=== PATIENT | male | born 1990 | race Two or more races ===

== ENCOUNTER 2024-07-15 11:00 | Inpatient (IN) | payer OTHER ==
[~2024-07-15] VITALS: Ht 175.3 cm; Wt 66.7 kg
[2024-07-15 12:29] VITALS: BP 115/75
[2024-07-21] MEDS ORDERED: METRONIDAZOLE/SODIUM CHLORIDE 500 MG/100 ML PIGGYBACK IV ONE ×2 (09:58→16:22)
[2024-07-21] MEDS ORDERED: CEFTRIAXONE SODIUM 1,000 MG VIAL ONE ×2 (09:58→10:08)
[2024-07-21] MEDS ORDERED: SUGAMMADEX SODIUM 200 MG/2 ML VIAL IV ONE (13:36)
[2024-07-21] MEDS ORDERED: 0.9 % SODIUM CHLORIDE 1,000 ML IV SCH (14:30)
[2024-07-21] MEDS ORDERED: OxyCODONE HCL 5 MG TABLET (ROXICODONE) PO PRN (14:30)
[2024-07-21] MEDS ORDERED: ONDANSETRON HCL 2 MG/ML VIAL IV PRN (14:30)
[2024-07-21] MEDS ORDERED: MORPHINE SULFATE 4 MG/ML CARTRIDGE IV PRN (14:30)
[2024-07-21] MEDS ORDERED: DEXTROSE 50 % IN WATER 0.5 G/ML DISP.SYRIN IV PRN (14:30)
[2024-07-21] MEDS ORDERED: MORPHINE SULFATE 4 MG/ML VIAL IV ONE ×2 (15:15→16:20)
[2024-07-21 16:08] LABS: HEMATOCRIT 36.7 % (39.0-48.0); HEMOGLOBIN 12.1 g/dL (13-16.00); MEAN CELL VOLUME 74.3 fL (80.0-100.00); MEAN CORPUSCULAR HEMOGLOBIN 24.6 pg (27.00-32.0); MEAN CORPUSCULAR HGB CONC 33.1 g/dl (32.0-36.0); PLATELET COUNT 408 K/uL (150-450); RED BLOOD COUNT 4.94 M/uL (4.00-6.00); RED CELL DISTRIBUTION WIDTH 15.5 % (11.5-14.5)
[2024-07-21] MEDS ORDERED: HYOSCYAMINE SULFATE 0.125 MG TAB.SUBL ONE (16:22)
[2024-07-21] MEDS ORDERED: GABAPENTIN 300 MG CAPSULE PO ONE (16:22)
[2024-07-21 16:37] LABS: ALBUMIN 2.8 gm/dL (3.4-5.0); CALCIUM 8.9 mg/dL (8.5-10.1); CREATININE SERUM 0.95 mg/dL (0.70-1.30); GFR 91.3; MAGNESIUM 1.9 mg/dL (1.8-2.4); PHOSPHOROUS 3.8 mg/dL (2.5-4.9); POTASSIUM 4.4 mEq/L (3.5-5.1)
[2024-07-21] MEDS ORDERED: GABAPENTIN 300 MG CAPSULE PO SCH (17:00)
[2024-07-21] MEDS ORDERED: HYOSCYAMINE SULFATE 0.125 MG TAB.SUBL SL SCH (17:00)
[2024-07-21] MEDS ORDERED: METRONIDAZOLE/SODIUM CHLORIDE 500 MG/100 ML PIGGYBACK IV SCH (17:00)
[2024-07-21 17:08] VITALS: BP 115/75; O2SAT 100
[2024-07-21] MEDS ORDERED: ACETAMINOPHEN 500 MG GEL..CAP PO SCH (20:00)
[2024-07-21] MEDS ORDERED: FAMOTIDINE/PF 20 MG/2 ML VIAL IV PUSH SCH (21:00)
[2024-07-21] MEDS ORDERED: CELECOXIB 200 MG CAPSULE PO SCH (21:00)
[2024-07-21 23:52] VITALS: BP 106/63; O2SAT 100
[2024-07-22] MEDS ORDERED: ENOXAPARIN SODIUM 40 MG/0.4 ML SYRINGE SUBCUTANEO SCH (17:00)
[2024-07-23] MEDS ORDERED: ENOXAPARIN SODIUM 40 MG/0.4 ML SYRINGE SUBCUTANEO SCH (09:00)
[2024-07-23 16:21] VITALS: BP 126/78; O2SAT 100
[2024-07-24 01:25] VITALS: BP 107/62; O2SAT 100
[2024-07-24 08:33] VITALS: BP 114/85; O2SAT 97
[2024-07-24] MEDS ORDERED: TRAM1TAB98 PO (09:57)
[2024-07-24] MEDS ORDERED: PEPCID AC20 MG PO (09:57)
== END 2024-07-24 11:59 | disposition home or self-care (01) | DRG 330 ==
LOC: SURH 07-21 07:00 → SURG 07-21 09:00 → O/R 07-21 09:00 → SURH 07-21 11:00 → SURG 07-21 15:43
PROVIDERS: ADMIT Surgery; ATTEND Surgery
PROC: 0DJD4ZZ Inspection of Lower Intestinal Tract, Percutaneous Endoscopic Approach (ICD-10-PCS; 2024-07-21)
PROC: 0D1L4Z4 Bypass Transverse Colon to Cutaneous, Percutaneous Endoscopic Approach (ICD-10-PCS; principal; 2024-07-21 07:00)
DX: C18.7 Malignant neoplasm of sigmoid colon (principal); C78.7 Secondary malignant neoplasm of liver and intrahepatic bile duct; K56.49 Other impaction of intestine

== ENCOUNTER 2024-08-18 05:58 | Day surgery (SDC) | payer OTHER ==
[2024-08-12 10:33] VITALS: BP 117/80
[2024-08-12 11:32] LABS: INR 1.05; PROTHROMBIN TIME 11.4 SECONDS (9.0-11.5)
[~2024-08-18] VITALS: Ht 175.3 cm; Wt 63.0 kg
[~2024-08-18 05:58] MED LIST: PEPCID AC20 MG PO; TRAM1TAB98 PO
[2024-08-18] MEDS ORDERED: BUPIVACAINE HCL 30 ML VIAL IJ ONE (10:15)
[2024-08-18] MEDS ORDERED: LIDOCAINE HCL 1% 20 ML VIAL IJ ONE (10:15)
[2024-08-18] MEDS ORDERED: CEFAZOLIN SODIUM 1,000 MG in 0.9 % SODIUM CHLORIDE 50 ML IV ONE (10:15)
[2024-08-18] MEDS ORDERED: HEPARIN SODIUM,PORCINE 500 UNITS/5 ML VIAL IV ONE (10:15)
[2024-08-18] MEDS ORDERED: TRAM1TAB98 PO (11:15)
== END 2024-08-18 12:55 | disposition home or self-care (01) ==
LOC: CIR.AMB 05:58
PROVIDERS: ATTEND Surgery
DX: C18.7 Malignant neoplasm of sigmoid colon (principal); C78.7 Secondary malignant neoplasm of liver and intrahepatic bile duct
CPT/HCPCS: 36561; C1751

== ENCOUNTER 2024-09-13 07:00 | Inpatient (IN) | payer OTHER ==
[~2024-09-13] VITALS: Ht 175.3 cm; Wt 0.5 kg
[2024-09-13] MEDS ORDERED: 0.9 % SODIUM CHLORIDE 1,000 ML IV ONE (08:15)
[2024-09-13 08:46] LABS: BASO % 0.1 % (0.1-1.2); EOS # 0.01 (0.04-0.54); EOS % 0.1 % (0.7-7.0); LYMPH # 0.74 (1.18-3.74); LYMPH % 7.7 % (19.3-53.1); MEAN PLATELET VOLUME 9.30 fl (9.4-12.4); MONO # 1.19 (0.24-0.82); MONO % 12.4 % (4.7-12.5); NEUT # 7.62 (1.56-6.13); NEUT % 79.3 % (34.0-71.1); RED CELL DISTRIBUTION WIDTH 18.6 % (11.6-14.4)
[2024-09-13 09:12] LABS: INR 1.21
[2024-09-13 09:27] LABS: ALT/SGPT 24.0 U/L (12-78); AST/SGOT 17.0 U/L (15-37); BILIRUBIN TOTAL 1.55 mg/dL (0.3-1.2); BUN CREA RATIO 22.0 (7.0-25.0); CREATININE SERUM 0.81 mg/dL (0.70-1.30); GFR 109.74; GLOBULINA 4.0 G/DL (2.4-3.5); GLUCOSE FASTING 105.0 mg/dL (65-100); OSMOLALITY SERUM 270.0 MOSM/KG (275-295)
[2024-09-13 09:31] LABS: URINE APPEARANCE Clear; URINE BILIRRUBIN Small (NEGATIVE); URINE BLOOD Negative; URINE COLOR Dark Yellow; URINE GLUCOSE Negative (NEGATIVE); URINE KETONE 15 (NEGATIVE); URINE LEUKOCYTE Trace; URINE NITRATE Negative; URINE PROTEIN 30 (NEGATIVE); URINE UROBILINOGEN 1.0 E.U./dl
[2024-09-13 09:35] LABS: URINE BACTERIA 57.5 uL (0.0-1933); URINE EPITHELIAL CELLS 41.7 uL (0.0-38.8); URINE RBC 9.5 uL (0.0-20.8); URINE WBC 11.0 uL (0.0-23.2)
[2024-09-13 09:44] LABS: URINE CAST 0.88 uL (0.0-1.40)
[2024-09-13 09:47] LABS: COVID-19 AG NEGATIVE (NEGATIVE)
[2024-09-13] MEDS ORDERED: PIPERACILLIN/TAZOBACTAM SODIUM 3.375 GM VIAL IV ONE ×3 (11:04→20:19)
[2024-09-13] MEDS ORDERED: PANTOPRAZOLE SODIUM 40 MG/VIAL VIAL IV PUSH ONE (11:15)
[2024-09-13] MEDS ORDERED: LIDOCAINE HCL 2% JELLY 6 ML SYRINGE MM ONE (11:37)
[2024-09-13] MEDS ORDERED: FAMOTIDINE/PF 20 MG/2 ML VIAL IV SCH (12:54)
[2024-09-13] MEDS ORDERED: ENOXAPARIN SODIUM 40 MG/0.4 ML SYRINGE SUBCUTANEO SCH (12:55)
[2024-09-13] MEDS ORDERED: MORPHINE SULFATE 4 MG/ML VIAL IV PRN (13:00)
[2024-09-13] MEDS ORDERED: DEXTROSE 5 % AND 0.9 % NACL 1,000 ML IV SCH (13:00)
[2024-09-13] MEDS ORDERED: AA 4.25%/CAL/LYTES/DEXT 5% 1,000 ML PERIFERAL SCH ×2 (13:00→17:00)
[2024-09-13] MEDS ORDERED: ONDANSETRON HCL 2 MG/ML VIAL IV PRN (13:00)
[2024-09-13] MEDS ORDERED: ENOXAPARIN SODIUM 40 MG/0.4 ML SYRINGE SUBCUTANEO ONE (13:44)
[2024-09-13] MEDS ORDERED: FAMOTIDINE/PF 20 MG/2 ML VIAL ONE ×2 (13:44→20:19)
[2024-09-13] MEDS ORDERED: PIPERACILLIN/TAZOBACTAM SODIUM 3.375 GM in DEXTROSE 5 % IN WATER 100 ML IV SCH (14:00)
[2024-09-13 14:24] VITALS: BP 121/84; O2SAT 100
[2024-09-13 22:00] VITALS: BP 107/72; O2SAT 99
[2024-09-14 01:03] VITALS: BP 112/78; O2SAT 99
[2024-09-14 08:00] VITALS: BP 116/72; O2SAT 100
[2024-09-14 09:40] LABS: ALT/SGPT 19.0 U/L (12-78); AST/SGOT 14.0 U/L (15-37); BILIRUBIN TOTAL 1.37 mg/dL (0.3-1.2); BUN CREA RATIO 16.0 (7.0-25.0); CREATININE SERUM 0.81 mg/dL (0.70-1.30); GFR 109.74; GLOBULINA 3.8 G/DL (2.4-3.5); GLUCOSE FASTING 96.0 mg/dL (65-100); OSMOLALITY SERUM 274.0 MOSM/KG (275-295)
[2024-09-14 10:07] LABS: BASO % 0.3 % (0.1-1.2); EOS # 0.03 (0.04-0.54); EOS % 0.4 % (0.7-7.0); LYMPH # 0.77 (1.18-3.74); LYMPH % 11.4 % (19.3-53.1); MEAN PLATELET VOLUME 8.80 fl (9.4-12.4); MONO # 1.80 (0.24-0.82); NEUT # 4.12 (1.56-6.13); NEUT % 60.9 % (34.0-71.1); RED CELL DISTRIBUTION WIDTH 17.0 % (11.6-14.4)
[2024-09-14 10:30] LABS: ERYTHROCYTE SEDIMENTATION RATE 93 mm/hr (0-15)
[2024-09-14 10:57] LABS: MONO % 26.6 % (4.7-12.5)
[2024-09-14 10:58] LABS: BAND MAN 7.0 %; EOSINOPHIL MAN 2.0 %; LYMPHOCYTE MAN 9.0 %; MONOCYTE MAN 14.0 %; NEUTROPHILS MAN 65.0 %
[2024-09-14 16:00] VITALS: BP 123/85; O2SAT 96
[2024-09-15] VITALS: BP 119/73; O2SAT 99
[2024-09-15 09:05] VITALS: BP 126/76; O2SAT 97
[2024-09-15 16:30] VITALS: BP 126/91; O2SAT 99
[2024-09-15] MEDS ORDERED: MIDAZOLAM HCL 2 MG/2 ML VIAL IV PUSH ONE (19:15)
[2024-09-15] MEDS ORDERED: fentaNYL CITRATE 50 MCG/ML AMPUL IV PUSH ONE (19:15)
[2024-09-16 01:26] VITALS: BP 111/63; O2SAT 98
[2024-09-16 08:58] VITALS: BP 133/84
[2024-09-16 09:44] LABS: BASO % 0.2 % (0.1-1.2); EOS # 0.03 (0.04-0.54); EOS % 0.3 % (0.7-7.0); LYMPH # 0.71 (1.18-3.74); LYMPH % 7.2 % (19.3-53.1); MEAN PLATELET VOLUME 8.80 fl (9.4-12.4); MONO # 1.72 (0.24-0.82); NEUT # 7.21 (1.56-6.13); NEUT % 73.6 % (34.0-71.1); RED CELL DISTRIBUTION WIDTH 16.7 % (11.6-14.4)
[2024-09-16 09:51] LABS: MONO % 17.6 % (4.7-12.5)
[2024-09-16 09:56] LABS: INR 1.16
[2024-09-16 10:43] LABS: ALT/SGPT 17.0 U/L (12-78); AST/SGOT 15.0 U/L (15-37); BILIRUBIN TOTAL 0.66 mg/dL (0.3-1.2); BILIRUBIN,CONJUGATED 0.31 mg/dL (0.0-0.2); BUN CREA RATIO 14.0 (7.0-25.0); CHOL HDL RATIO 3.7 (0-5.0); CREATININE SERUM 0.73 mg/dL (0.70-1.30); GFR 123.74; GLUCOSE FASTING 98.0 mg/dL (65-100); HDL 22.0 mg/dl (40-60); LDL 46.0 mg/dl (0-130); OSMOLALITY SERUM 267.0 MOSM/KG (275-295); VLDL 13.0 (0-39)
[2024-09-16 16:00] VITALS: BP 148/74; O2SAT 95
[2024-09-16] MEDS ORDERED: DEXTROSE 5%-WATER 100ML IV.SOLN ONE (23:45)
[2024-09-17 01:50] VITALS: BP 122/76; O2SAT 99
[2024-09-17 08:54] VITALS: BP 123/79; O2SAT 100
[2024-09-17 16:57] VITALS: BP 131/83; O2SAT 99
[2024-09-18 00:56] VITALS: BP 129/80; O2SAT 100
[2024-09-18 05:07] LABS: BASO % 0.3 % (0.1-1.2); EOS # 0.08 (0.04-0.54); EOS % 0.8 % (0.7-7.0); LYMPH # 1.25 (1.18-3.74); LYMPH % 12.2 % (19.3-53.1); MEAN PLATELET VOLUME 8.50 fl (9.4-12.4); MONO # 1.74 (0.24-0.82); NEUT # 7.00 (1.56-6.13); NEUT % 68.1 % (34.0-71.1); RED CELL DISTRIBUTION WIDTH 16.8 % (11.6-14.4)
[2024-09-18 05:17] LABS: MONO % 17.0 % (4.7-12.5)
[2024-09-18 05:25] LABS: BUN CREA RATIO 11.0 (7.0-25.0); CREATININE SERUM 0.76 mg/dL (0.70-1.30); GFR 118.12; GLUCOSE FASTING 107.0 mg/dL (65-100); OSMOLALITY SERUM 271.0 MOSM/KG (275-295)
[2024-09-18 08:00] VITALS: BP 114/86; O2SAT 100
[2024-09-18 17:12] VITALS: BP 151/75; O2SAT 95
[2024-09-19] VITALS: BP 144/83; O2SAT 99
[2024-09-19 08:00] VITALS: BP 122/83; O2SAT 99
[2024-09-19 21:27] VITALS: BP 105/68; O2SAT 99
[2024-09-20 01:15] VITALS: BP 118/66; O2SAT 100
[2024-09-20 08:39] VITALS: BP 125/80; O2SAT 95
[2024-09-20 16:00] VITALS: BP 123/92; O2SAT 99
[2024-09-21 01:08] VITALS: BP 126/81; O2SAT 99
[2024-09-21 07:25] LABS: BUN CREA RATIO 13.0 (7.0-25.0); CREATININE SERUM 0.75 mg/dL (0.70-1.30); GFR 119.94; GLUCOSE FASTING 97.0 mg/dL (65-100); OSMOLALITY SERUM 271.0 MOSM/KG (275-295)
[2024-09-21 08:14] LABS: BASO % 0.3 % (0.1-1.2); EOS # 0.13 (0.04-0.54); EOS % 1.2 % (0.7-7.0); LYMPH # 1.16 (1.18-3.74); LYMPH % 10.4 % (19.3-53.1); MEAN PLATELET VOLUME 8.50 fl (9.4-12.4); MONO # 0.87 (0.24-0.82); MONO % 7.8 % (4.7-12.5); NEUT # 8.83 (1.56-6.13); NEUT % 79.4 % (34.0-71.1); RED CELL DISTRIBUTION WIDTH 17.2 % (11.6-14.4)
[2024-09-21 08:23] VITALS: BP 117/80; O2SAT 99
[2024-09-21 16:00] VITALS: BP 125/90; O2SAT 99
[2024-09-22 00:28] VITALS: BP 137/73; O2SAT 99
[2024-09-22 06:13] LABS: BASO % 0.2 % (0.1-1.2); EOS # 0.19 (0.04-0.54); EOS % 2.0 % (0.7-7.0); LYMPH # 1.27 (1.18-3.74); LYMPH % 13.1 % (19.3-53.1); MEAN PLATELET VOLUME 8.30 fl (9.4-12.4); MONO # 0.86 (0.24-0.82); MONO % 8.9 % (4.7-12.5); NEUT # 7.26 (1.56-6.13); NEUT % 75.1 % (34.0-71.1); RED CELL DISTRIBUTION WIDTH 17.2 % (11.6-14.4)
[2024-09-22 06:37] LABS: INR 1.1
[2024-09-22 06:45] LABS: ALT/SGPT 51.0 U/L (12-78); AST/SGOT 35.0 U/L (15-37); BILIRUBIN TOTAL 0.9 mg/dL (0.3-1.2); BILIRUBIN,CONJUGATED 0.31 mg/dL (0.0-0.2); BUN CREA RATIO 9.0 (7.0-25.0); CHOL HDL RATIO 2.9 (0-5.0); CREATININE SERUM 0.76 mg/dL (0.70-1.30); GFR 118.12; GLOBULINA 3.9 G/DL (2.4-3.5); GLUCOSE FASTING 89.0 mg/dL (65-100); HDL 31.0 mg/dl (40-60); LDL 45.0 mg/dl (0-130); OSMOLALITY SERUM 273.0 MOSM/KG (275-295); VLDL 13.0 (0-39)
[2024-09-22 08:32] LABS: UREA CLEARANCE 84.3 ML/MIN
[2024-09-22 08:55] VITALS: BP 118/74; O2SAT 98
[2024-09-22] MEDS ORDERED: DIATRIZOATE MEGLUMINE, SODIUM 30 ML BOTTLE PO NR (11:30)
[2024-09-22 16:00] VITALS: BP 128/85; O2SAT 99
[2024-09-23 00:43] VITALS: BP 127/82; O2SAT 97
[2024-09-23 08:00] VITALS: BP 124/88; O2SAT 100
[2024-09-23 19:30] VITALS: BP 135/93; O2SAT 97
[2024-09-24 00:38] VITALS: BP 132/90; O2SAT 99
[2024-09-24 08:00] VITALS: BP 130/88; O2SAT 100
[2024-09-24 16:44] VITALS: BP 134/89; O2SAT 100
[2024-09-24] MEDS ORDERED: FAMOTIDINE/PF 20 MG in 0.9 % SODIUM CHLORIDE 100 ML IV SCH (21:00)
[2024-09-25 00:57] VITALS: BP 128/78; O2SAT 100
[2024-09-25 07:40] LABS: BASO % 0.3 % (0.1-1.2); EOS # 0.55 (0.04-0.54); EOS % 5.5 % (0.7-7.0); LYMPH # 1.34 (1.18-3.74); LYMPH % 13.4 % (19.3-53.1); MEAN PLATELET VOLUME 8.80 fl (9.4-12.4); MONO # 0.68 (0.24-0.82); MONO % 6.8 % (4.7-12.5); NEUT # 7.36 (1.56-6.13); NEUT % 73.5 % (34.0-71.1); RED CELL DISTRIBUTION WIDTH 17.9 % (11.6-14.4)
[2024-09-25 08:00] VITALS: BP 144/90; O2SAT 99
[2024-09-25 08:11] LABS: ALT/SGPT 94.0 U/L (12-78); AST/SGOT 46.0 U/L (15-37); BILIRUBIN TOTAL 0.81 mg/dL (0.3-1.2); BUN CREA RATIO 10.0 (7.0-25.0); CREATININE SERUM 0.62 mg/dL (0.70-1.30); GFR 149.4; GLOBULINA 3.9 G/DL (2.4-3.5); GLUCOSE FASTING 95.0 mg/dL (65-100); OSMOLALITY SERUM 275.0 MOSM/KG (275-295)
[2024-09-25 16:12] VITALS: BP 134/93; O2SAT 100
[2024-09-25] MEDS ORDERED: LACTOBACILLUS ACIDOPHILUS 1 CAP CAP PO SCH (17:00)
[2024-09-26 01:00] VITALS: BP 137/81; O2SAT 100
[2024-09-26 08:00] VITALS: BP 130/90; O2SAT 97
[2024-09-26 16:00] VITALS: BP 129/89; O2SAT 100
[2024-09-27 01:00] VITALS: BP 119/79; O2SAT 99
[2024-09-27 09:32] VITALS: BP 143/94; O2SAT 99
[2024-09-27 16:10] VITALS: BP 131/92; O2SAT 99
[2024-09-28 00:49] VITALS: BP 139/89; O2SAT 99
[2024-09-28 08:13] VITALS: BP 131/93; O2SAT 100
[2024-09-28 16:57] VITALS: BP 138/91; O2SAT 96
[2024-09-29 00:43] VITALS: BP 131/87; O2SAT 97
[2024-09-29 06:44] LABS: BASO % 0.4 % (0.1-1.2); EOS # 1.54 (0.04-0.54); LYMPH # 1.00 (1.18-3.74); LYMPH % 12.1 % (19.3-53.1); MEAN PLATELET VOLUME 9.10 fl (9.4-12.4); MONO # 0.74 (0.24-0.82); MONO % 8.9 % (4.7-12.5); NEUT # 4.93 (1.56-6.13); NEUT % 59.6 % (34.0-71.1); RED CELL DISTRIBUTION WIDTH 18.6 % (11.6-14.4)
[2024-09-29 06:58] LABS: EOS % 18.6 % (0.7-7.0)
[2024-09-29 07:08] LABS: ALT/SGPT 89.0 U/L (12-78); AST/SGOT 33.0 U/L (15-37); BILIRUBIN TOTAL 1.03 mg/dL (0.3-1.2); BILIRUBIN,CONJUGATED 0.38 mg/dL (0.0-0.2); BUN CREA RATIO 8.0 (7.0-25.0); CHOL HDL RATIO 2.9 (0-5.0); CREATININE SERUM 0.79 mg/dL (0.70-1.30); GFR 112.96; GLOBULINA 4.4 G/DL (2.4-3.5); GLUCOSE FASTING 94.0 mg/dL (65-100); HDL 41.0 mg/dl (40-60); LDL 62.0 mg/dl (0-130); OSMOLALITY SERUM 273.0 MOSM/KG (275-295); VLDL 15.0 (0-39)
[2024-09-29 07:11] LABS: INR 1.1
[2024-09-29 08:43] LABS: UREA CLEARANCE 64.8 ML/MIN
[2024-09-29 09:01] VITALS: BP 132/95; O2SAT 96
[2024-09-29 16:00] VITALS: BP 121/80; O2SAT 97
[2024-09-29] MEDS ORDERED: DIATRIZOATE MEGLUMINE, SODIUM 30 ML BOTTLE PO NR (16:00)
[2024-09-29] MEDS ORDERED: METHYLPREDNISOLONE SOD SUCC 40 MG VIAL IV ONE (18:15)
[2024-09-29] MEDS ORDERED: DIPHENHYDRAMINE HCL 50 MG/ML VIAL 1ML IV ONE (18:15)
[2024-09-30 01:35] VITALS: BP 112/81; O2SAT 97
[2024-09-30 08:00] VITALS: BP 130/84; O2SAT 97
[2024-09-30 17:09] VITALS: BP 132/97; O2SAT 95
[2024-10-01 01:08] VITALS: BP 122/80; O2SAT 97
[2024-10-01 08:00] VITALS: BP 127/90; O2SAT 98
[2024-10-01 08:37] LABS: BASO % 0.5 % (0.1-1.2); EOS # 1.54 (0.04-0.54); EOS % 14.3 % (0.7-7.0); LYMPH # 1.91 (1.18-3.74); LYMPH % 17.8 % (19.3-53.1); MEAN PLATELET VOLUME 8.80 fl (9.4-12.4); MONO # 0.98 (0.24-0.82); MONO % 9.1 % (4.7-12.5); NEUT # 6.24 (1.56-6.13); NEUT % 58.0 % (34.0-71.1); RED CELL DISTRIBUTION WIDTH 19.3 % (11.6-14.4)
[2024-10-01 09:07] LABS: BUN CREA RATIO 10.0 (7.0-25.0); CREATININE SERUM 0.9 mg/dL (0.70-1.30); GFR 97.18; GLUCOSE FASTING 95.0 mg/dL (65-100); OSMOLALITY SERUM 274.0 MOSM/KG (275-295)
[2024-10-01 16:00] VITALS: BP 147/92; O2SAT 98
[2024-10-01] MEDS ORDERED: FAMOTIDINE/PF 20 MG in 0.9 % SODIUM CHLORIDE 8 ML IV PUSH SCH (21:00)
[2024-10-02 01:25] VITALS: BP 139/87; O2SAT 98
[2024-10-02 08:38] VITALS: BP 130/96; O2SAT 100
[2024-10-02 16:00] VITALS: BP 144/96; O2SAT 100
[2024-10-03 00:52] VITALS: BP 101/65
[2024-10-03 08:28] VITALS: BP 133/92; O2SAT 99
[2024-10-03] MEDS ORDERED: TRAMADOL HCL 50 MG TABLET PO PRN (12:00)
[2024-10-03 17:47] VITALS: BP 146/96; O2SAT 99
[2024-10-04 01:57] VITALS: BP 137/83; O2SAT 97
[2024-10-04 08:23] VITALS: BP 128/57; O2SAT 99
[2024-10-04 16:00] VITALS: BP 129/89; O2SAT 100
[2024-10-05 01:20] VITALS: BP 131/90; O2SAT 99
[2024-10-05 07:27] LABS: BASO % 0.3 % (0.1-1.2); EOS # 0.68 (0.04-0.54); EOS % 7.5 % (0.7-7.0); LYMPH # 0.94 (1.18-3.74); LYMPH % 10.4 % (19.3-53.1); MEAN PLATELET VOLUME 8.80 fl (9.4-12.4); MONO # 0.90 (0.24-0.82); MONO % 9.9 % (4.7-12.5); NEUT # 6.47 (1.56-6.13); NEUT % 71.6 % (34.0-71.1); RED CELL DISTRIBUTION WIDTH 19.0 % (11.6-14.4)
[2024-10-05 07:47] LABS: ALT/SGPT 100.0 U/L (12-78); AST/SGOT 39.0 U/L (15-37); BILIRUBIN TOTAL 0.98 mg/dL (0.3-1.2); BUN CREA RATIO 9.0 (7.0-25.0); CREATININE SERUM 0.64 mg/dL (0.70-1.30); GFR 144.03; GLOBULINA 4.0 G/DL (2.4-3.5); GLUCOSE FASTING 98.0 mg/dL (65-100); OSMOLALITY SERUM 268.0 MOSM/KG (275-295)
[2024-10-05 08:00] VITALS: BP 134/92; O2SAT 100
[2024-10-05 09:15] LABS: ERYTHROCYTE SEDIMENTATION RATE 77 mm/hr (0-15)
[2024-10-05 16:00] VITALS: BP 130/88; O2SAT 99
[2024-10-06] VITALS: BP 134/90; O2SAT 97
[2024-10-06 06:31] LABS: BASO % 0.4 % (0.1-1.2); EOS # 0.35 (0.04-0.54); EOS % 4.3 % (0.7-7.0); LYMPH # 1.04 (1.18-3.74); LYMPH % 12.7 % (19.3-53.1); MEAN PLATELET VOLUME 9.00 fl (9.4-12.4); MONO # 0.91 (0.24-0.82); MONO % 11.1 % (4.7-12.5); NEUT # 5.84 (1.56-6.13); NEUT % 71.3 % (34.0-71.1); RED CELL DISTRIBUTION WIDTH 18.8 % (11.6-14.4)
[2024-10-06 06:39] LABS: INR 1.12
[2024-10-06 07:13] LABS: ALT/SGPT 91.0 U/L (12-78); AST/SGOT 34.0 U/L (15-37); BILIRUBIN TOTAL 0.99 mg/dL (0.3-1.2); BILIRUBIN,CONJUGATED 0.36 mg/dL (0.0-0.2); BUN CREA RATIO 10.0 (7.0-25.0); CREATININE SERUM 0.59 mg/dL (0.70-1.30); GFR 158.2; GLOBULINA 4.0 G/DL (2.4-3.5); GLUCOSE FASTING 98.0 mg/dL (65-100); OSMOLALITY SERUM 268.0 MOSM/KG (275-295)
[2024-10-06 08:59] LABS: UREA CLEARANCE 56.8 ML/MIN
[2024-10-06 09:14] VITALS: BP 126/87; O2SAT 97
[2024-10-06 16:00] VITALS: BP 143/100; O2SAT 96
[2024-10-06 20:00] VITALS: BP 128/90; O2SAT 97
[2024-10-07 01:31] VITALS: BP 131/87; O2SAT 97
[2024-10-07 08:00] VITALS: BP 126/84; O2SAT 97
[2024-10-07 17:24] VITALS: BP 143/86; O2SAT 98
[2024-10-08 02:21] VITALS: BP 136/94; O2SAT 98
[2024-10-08 08:00] VITALS: BP 134/85; O2SAT 95
[2024-10-08] MEDS ORDERED: MIDAZOLAM HCL 2 MG/2 ML VIAL IV ONE (08:45)
[2024-10-08] MEDS ORDERED: fentaNYL CITRATE 50 MCG/ML AMPUL IV PUSH ONE (08:45)
[2024-10-08] MEDS ORDERED: DIPHENHYDRAMINE HCL 50 MG/ML VIAL 1ML IV ONE (08:45)
[2024-10-08 17:34] VITALS: BP 125/89; O2SAT 99
[2024-10-09 01:56] VITALS: BP 143/99; O2SAT 97
[2024-10-09 07:32] LABS: BASO % 0.3 % (0.1-1.2); EOS # 0.04 (0.04-0.54); EOS % 0.4 % (0.7-7.0); LYMPH # 0.96 (1.18-3.74); LYMPH % 9.3 % (19.3-53.1); MEAN PLATELET VOLUME 9.10 fl (9.4-12.4); MONO # 1.09 (0.24-0.82); MONO % 10.6 % (4.7-12.5); NEUT # 8.16 (1.56-6.13); NEUT % 79.1 % (34.0-71.1); RED CELL DISTRIBUTION WIDTH 19.2 % (11.6-14.4)
[2024-10-09 08:00] VITALS: BP 127/92; O2SAT 96
[2024-10-09 08:02] LABS: BUN CREA RATIO 15.0 (7.0-25.0); CREATININE SERUM 0.68 mg/dL (0.70-1.30); GFR 134.29; GLUCOSE FASTING 102.0 mg/dL (65-100); OSMOLALITY SERUM 271.0 MOSM/KG (275-295)
[2024-10-09 18:21] VITALS: BP 136/93; O2SAT 97
[2024-10-10 02:20] VITALS: BP 145/92; O2SAT 95
[2024-10-10 07:00] VITALS: BP 142/78; O2SAT 96
[2024-10-10] MEDS ORDERED: MULTIVIT INFUSN,ADULT 4,VIT K 10 ML VIAL IV STA (08:57)
[2024-10-10] MEDS ORDERED: PHENOL 177 ML BOTTLE MM SCH (09:00)
[2024-10-10] MEDS ORDERED: METOCLOPRAMIDE HCL 5 MG/ML VIAL IV SCH (09:00)
[2024-10-10 10:29] LABS: BASO % 0.3 % (0.1-1.2); EOS # 0.14 (0.04-0.54); EOS % 2.0 % (0.7-7.0); LYMPH # 0.91 (1.18-3.74); LYMPH % 12.8 % (19.3-53.1); MEAN PLATELET VOLUME 9.10 fl (9.4-12.4); MONO # 1.01 (0.24-0.82); NEUT # 5.04 (1.56-6.13); NEUT % 70.6 % (34.0-71.1); RED CELL DISTRIBUTION WIDTH 18.8 % (11.6-14.4)
[2024-10-10 10:43] LABS: MONO % 14.2 % (4.7-12.5)
[2024-10-10 11:04] LABS: BUN CREA RATIO 14.0 (7.0-25.0); CREATININE SERUM 0.72 mg/dL (0.70-1.30); GFR 125.72; GLUCOSE FASTING 102.0 mg/dL (65-100); OSMOLALITY SERUM 271.0 MOSM/KG (275-295)
[2024-10-10 15:00] VITALS: BP 142/95; O2SAT 99
[2024-10-10] MEDS ORDERED: PANTOPRAZOLE SODIUM 40 MG/VIAL VIAL IV PUSH SCH (19:40)
[2024-10-10] MEDS ORDERED: LORazepam 2 MG/ML VIAL IV PUSH SCH (21:00)
[2024-10-11 01:42] VITALS: BP 130/92; O2SAT 20
[2024-10-11 08:00] VITALS: BP 142/97; O2SAT 96
[2024-10-11] MEDS ORDERED: ONDANSETRON HCL 2 MG/ML VIAL IV PRN (11:30)
[2024-10-11] MEDS ORDERED: MORPHINE SULFATE 4 MG/ML CARTRIDGE IV PRN (11:30)
[2024-10-11] MEDS ORDERED: HYOSCYAMINE SULFATE 0.125 MG TAB.SUBL SL SCH (13:00)
[2024-10-11 16:00] VITALS: BP 146/90; O2SAT 96
[2024-10-11 20:00] VITALS: BP 137/91; O2SAT 96
[2024-10-12 01:06] VITALS: BP 136/90; O2SAT 96
[2024-10-12 08:11] LABS: BASO % 0.5 % (0.1-1.2); EOS # 0.29 (0.04-0.54); EOS % 3.4 % (0.7-7.0); LYMPH # 1.08 (1.18-3.74); LYMPH % 12.5 % (19.3-53.1); MEAN PLATELET VOLUME 8.90 fl (9.4-12.4); MONO # 1.02 (0.24-0.82); MONO % 11.8 % (4.7-12.5); NEUT # 6.19 (1.56-6.13); NEUT % 71.5 % (34.0-71.1); RED CELL DISTRIBUTION WIDTH 19.1 % (11.6-14.4)
[2024-10-12 08:28] LABS: BUN CREA RATIO 14.0 (7.0-25.0); CREATININE SERUM 0.71 mg/dL (0.70-1.30); GFR 127.77; GLUCOSE FASTING 73.0 mg/dL (65-100); OSMOLALITY SERUM 271.0 MOSM/KG (275-295)
[2024-10-12 10:12] VITALS: BP 137/93; O2SAT 95
[2024-10-12 16:00] VITALS: BP 134/72; O2SAT 95
[2024-10-12] MEDS ORDERED: FAMOTIDINE/PF 20 MG in 0.9 % SODIUM CHLORIDE 8 ML IV PUSH SCH (21:00)
[2024-10-13 01:13] VITALS: BP 131/92; O2SAT 99
[2024-10-13 06:18] LABS: BASO % 0.4 % (0.1-1.2); EOS # 0.18 (0.04-0.54); EOS % 2.2 % (0.7-7.0); LYMPH # 0.84 (1.18-3.74); LYMPH % 10.1 % (19.3-53.1); MEAN PLATELET VOLUME 9.10 fl (9.4-12.4); MONO # 0.82 (0.24-0.82); MONO % 9.9 % (4.7-12.5); NEUT # 6.41 (1.56-6.13); NEUT % 76.9 % (34.0-71.1); RED CELL DISTRIBUTION WIDTH 18.7 % (11.6-14.4)
[2024-10-13 06:49] LABS: INR 1.15
[2024-10-13 07:30] LABS: ALT/SGPT 39.0 U/L (12-78); AST/SGOT 27.0 U/L (15-37); BILIRUBIN TOTAL 1.22 mg/dL (0.3-1.2); BILIRUBIN,CONJUGATED 0.46 mg/dL (0.0-0.2); BUN CREA RATIO 17.0 (7.0-25.0); CHOL HDL RATIO 3.2 (0-5.0); CREATININE SERUM 0.64 mg/dL (0.70-1.30); GFR 144.03; GLOBULINA 3.9 G/DL (2.4-3.5); GLUCOSE FASTING 79.0 mg/dL (65-100); HDL 36.0 mg/dl (40-60); LDL 61.0 mg/dl (0-130); OSMOLALITY SERUM 270.0 MOSM/KG (275-295); VLDL 18.0 (0-39)
[2024-10-13 08:00] VITALS: BP 121/86; O2SAT 98
[2024-10-13 10:07] LABS: UREA CLEARANCE 39.7 ML/MIN
[2024-10-13] MEDS ORDERED: PERCOCET 5-3251 EACH PO (14:20)
== END 2024-10-13 21:01 | disposition home or self-care (01) | DRG 372 ==
LOC: ER 07:03 → SURH 13:06 → SEC-K 13:06 → SURH 18:01
PROVIDERS: General Practice; Internal Medicine; Internal Medicine Geriatric Medicine; Student in an Organized Health Care Education/Training Program; Surgery; ADMIT Surgery; ATTEND Surgery
PROC: BW21YZZ Computerized Tomography (CT Scan) of Abdomen and Pelvis using Other Contrast (ICD-10-PCS; principal; 2024-09-13)
PROC: 8E0ZXY6 Isolation (ICD-10-PCS; 2024-09-13)
PROC: 0DH68UZ Insertion of Feeding Device into Stomach, Via Natural or Artificial Opening Endoscopic (ICD-10-PCS; 2024-09-13)
PROC: 4A12X4Z Monitoring of Cardiac Electrical Activity, External Approach (ICD-10-PCS; 2024-09-14)
PROC: 0W9F3ZZ Drainage of Abdominal Wall, Percutaneous Approach (ICD-10-PCS; 2024-09-15)
PROC: BW21YZZ Computerized Tomography (CT Scan) of Abdomen and Pelvis using Other Contrast (ICD-10-PCS; 2024-09-22)
PROC: BW21YZZ Computerized Tomography (CT Scan) of Abdomen and Pelvis using Other Contrast (ICD-10-PCS; 2024-09-29)
PROC: 0DJD8ZZ Inspection of Lower Intestinal Tract, Via Natural or Artificial Opening Endoscopic (ICD-10-PCS; 2024-10-08)
PROC: 0DH67UZ Insertion of Feeding Device into Stomach, Via Natural or Artificial Opening (ICD-10-PCS; 2024-10-11)
DX: K65.1 Peritoneal abscess (principal); C18.7 Malignant neoplasm of sigmoid colon; K56.49 Other impaction of intestine; C78.7 Secondary malignant neoplasm of liver and intrahepatic bile duct; K56.0 Paralytic ileus; E86.0 Dehydration; D63.0 Anemia in neoplastic disease; B96.29 Other Escherichia coli [E. coli] as the cause of diseases classified elsewhere; R14.0 Abdominal distension (gaseous)